=== PATIENT | female | born 1965 | race American Indian/Alaskan Native ===

== ENCOUNTER 2019-05-21 19:28 | Emergency (ER) | payer SELFPAY ==
[2019-05-21 19:33] VITALS: BP 198/98
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
[2019-05-22] MEDS ORDERED: dexAMETHasone 20 MG/5 ML VIAL IM ONE (00:04)
[2019-05-22] MEDS ORDERED: KETOROLAC 30 MG/1 ML INJ IM ONE (00:05)
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
== END 2019-05-22 01:20 | disposition home or self-care (01) ==
LOC: ED 19:28
DX: S16.1XXA Strain of muscle, fascia and tendon at neck level, initial encounter (principal); Z79.899 Other long term (current) drug therapy; V49.49XA Driver injured in collision with other motor vehicles in traffic accident, initial encounter; Y93.89 Activity, other specified; Y92.488 Other paved roadways as the place of occurrence of the external cause; Y99.8 Other external cause status
CPT/HCPCS: 72040; 96372; 99283; J1100; J1885